=== PATIENT | female | born 1975 | race Native Hawaiian/Other Pacific Islander ===

== ENCOUNTER 2018-07-31 20:13 | Emergency (ER) | payer BC ==
--- NOTE | 2018-07-31 21:33 | ED PDOC ---
HPI: Psych/Substance Abuse Time Seen by Provider: 07/31/18 20:54 Chief Complaint (Nursing): Psychiatric Evaluation Chief Complaint (Provider): crisis eval History Per: Patient, EMS Additional Complaint(s): 42 y/o female brought in by EMS for crisis evaluation. Patient states she called 911 because there was a worker in her building banging on her door trying to get in. As per EMS, patient called 911 acting paranoid and could not provide EMS or police with clear or coherent thoughts; mobile crisis was contacted but unable to get to home. Patient calm at present, states she is feeling better; denies suicidal/homicidal ideations, acute physical complaints. Past Medical History Reviewed: Historical Data, Nursing Documentation, Vital Signs Vital Signs: Last Vital Signs Temp 98.4 F 07/31/18 20:15 Pulse 109 H 07/31/18 20:15 Resp 18 07/31/18 20:15 BP 156/104 H 07/31/18 20:15 Pulse Ox 100 07/31/18 20:15 - Medical History PMH: Bipolar Disorder, Schizophrenia - Surgical History Surgical History: - Family History Family History: States: No Known Family Hx - Allergies Allergies/Adverse Reactions: Allergies Allergy/AdvReac Type Severity Reaction Status Date / Time No Known Allergies Allergy Verified 07/31/18 21:29 Review of Systems ROS Statement: Except As Marked, All Systems Reviewed And Found Negative Psych: Positive for: Other (paranoia) Physical Exam - Reviewed Nursing Documentation Reviewed: Yes Vital Signs Reviewed: Yes - Physical Exam Appears: Positive for: Well, Non-toxic, No Acute Distress Head Exam: Positive for: ATRAUMATIC, NORMAL INSPECTION, NORMOCEPHALIC Skin: Positive for: Normal Color Eye Exam: Positive for: Normal appearance ENT: Positive for: Normal ENT Inspection Cardiovascular/Chest: Positive for: Regular Rate, Rhythm Respiratory: Positive for: Normal Breath Sounds Gastrointestinal/Abdominal: Positive for: Normal Exam Back: Positive for: Normal Inspection Extremity: Positive for: Normal ROM Neurologic/Psych: Positive for: Alert, Oriented (x3), Mood/Affect (guarded) - ECG O2 Sat by Pulse Oximetry: 100 - Progress ED Course And Treament: Patient evaluated by developmental services worker; does not meet criteria for admission at this time as per Dr. White Patient require no further intervention in the ED and is stable for discharge at this time Return precautions given Disposition - Clinical Impression Clinical Impression: Mood disorder - Patient ED Disposition Is Patient to be Admitted: No Counseled Patient/Family Regarding: Diagnosis, Need For Followup - Disposition Disposition: Routine/Home Disposition Time: 00:26 Condition: IMPROVED
[2018-08-01 00:32] VITALS: BP 136/79; PULSE 86; RESP 16; TEMP 98.1; O2SAT 99
== END 2018-08-01 00:43 | disposition home or self-care (01) ==
LOC: H.ER 20:13
DX: F39 Unspecified mood [affective] disorder (principal); F20.9 Schizophrenia, unspecified; F31.9 Bipolar disorder, unspecified

== ENCOUNTER 2018-12-07 23:57 | Emergency (ER) | payer BC ==
[2018-12-08 02:40] LABS: BASO # 0.1 K/uL (0.0-0.2); BASO % 0.6 % (0.0-2.0); EOS % 0.2 % (0.0-4.0); HEMOGLOBIN 13.6 g/dL (12.0-16.0); LYMPH # 2.6 K/uL (1.0-4.3); LYMPH % 18.5 % (20.0-40.0); MEAN CELL VOLUME 94.3 fl (81.0-99.0); MEAN CORPUSCULAR HEMOGLOBIN 32.4 pg (27.0-31.0); MEAN CORPUSCULAR HGB CONC 34.4 g/dL (33.0-37.0); MEAN PLATELET VOLUME 6.9 fl (7.2-11.7); MONO # 0.7 K/uL (0.0-0.8); NEUT # 10.8 K/uL (1.8-7.0); NEUT % 75.7 % (50.0-75.0); NRBC % 0.1 % (0.0-0.0); RBC 4.19 Mil/uL (3.80-5.20); RED CELL DISTRIBUTION WIDTH 12.6 % (11.5-14.5); WHITE BLOOD COUNT 14.3 K/uL (4.8-10.8)
[2018-12-08 02:57] LABS: ACETAMINOPHEN < 10.0 ug/ml (10.0-30.0); SALICYLATE < 1.0 mg/dl
[2018-12-08 02:58] LABS: BLOOD UREA NITROGEN 7 mg/dl (7-17); CALCIUM 9.7 mg/dL (8.4-10.2); GFR NON-AFRICAN AMERICAN > 60
--- NOTE | 2018-12-08 03:00 | ED PDOC ---
HPI: Psych/Substance Abuse Time Seen by Provider: 12/08/18 01:07 Chief Complaint (Nursing): Psychiatric Evaluation Chief Complaint (Provider): Psychiatric Evaluation History Per: Patient, Family (Cousin) History/Exam Limitations: no limitations Associated Symptoms: Anxiety. denies: Suicidal Thoughts Additional Complaint(s): 43 years old female with history of psychiatric disease brought in by police for wellness check after her friends called 911. Patient states she was gathering her belongings to move from [place] to [place] when this incident happened. Patient's cousin reports patient has been off her medications and decompensating and has been having more erratic behavior. Cousin is concerned because patient has been admitted multiple times for this in the past. Patient continuously asking for her civil rights and attempted to call multiple it network administrator while in the ED. She denies suicidal ideation, drug or alcohol usage. PMD: Goran Adan Past Medical History Reviewed: Historical Data, Nursing Documentation, Vital Signs Vital Signs: Last Vital Signs Temp 98.2 F 12/08/18 00:07 Pulse 118 H 12/08/18 00:07 Resp 18 12/08/18 00:07 BP 115/70 12/08/18 00:07 Pulse Ox 99 12/08/18 00:07 - Medical History PMH: Bipolar Disorder, Schizophrenia Denies: Diabetes, Hepatitis, HIV, HTN, Seizures, Sexually Transmitted Disease - Surgical History Surgical History: - Family History Family History: States: Unknown Family Hx - Allergies Allergies/Adverse Reactions: Allergies Allergy/AdvReac Type Severity Reaction Status Date / Time No Known Allergies Allergy Verified 07/31/18 21:29 Review of Systems ROS Statement: Except As Marked, All Systems Reviewed And Found Negative Psych: Negative for: Suicidal ideation Physical Exam - Reviewed Nursing Documentation Reviewed: Yes Vital Signs Reviewed: Yes - Physical Exam Appears: Positive for: No Acute Distress Head Exam: Positive for: ATRAUMATIC, NORMOCEPHALIC Skin: Positive for: Normal Color, Warm, Dry Eye Exam: Positive for: Normal appearance, EOMI, PERRL ENT: Positive for: Normal ENT Inspection Neck: Positive for: Normal, Painless ROM, Supple Cardiovascular/Chest: Positive for: Regular Rate, Rhythm. Negative for: Murmur Respiratory: Positive for: Normal Breath Sounds. Negative for: Respiratory Distress Gastrointestinal/Abdominal: Positive for: Normal Exam, Soft. Negative for: Tenderness Back: Positive for: Normal Inspection. Negative for: L CVA Tenderness, R CVA Tenderness Extremity: Positive for: Normal ROM. Negative for: Pedal Edema, Deformity Neurological/Psych: Positive for: Awake, Alert, Oriented (x3), Other (Patient is extremely anxious. Patient has paranoid fixed delusions.) - Laboratory Results Result Diagrams: 12/08/18 02:33 12/08/18 02:33 - ECG O2 Sat by Pulse Oximetry: 99 (RA) Pulse Ox Interpretation: Normal Medical Decision Making Medical Decision Making: Time: 0126 A/P: 43 yo female with paranoid schizophrenia --Patient is not cooperating with staff regarding workup --Patient is not exhibiting clear thinking or rational thinking --Patient was relieved of agitation with medication and required restraints for own safety --call worker, Dasia, evaluated patient and will await for psychiatric re commendations. Scribe Attestation: Documented by Ivonne Santamaria, acting as a scribe for Bon Lara MD. Provider Scribe Attestation: All medical record entries made by the Scribe were at my direction and personally dictated by me. I have reviewed the chart and agree that the record accurately reflects my personal performance of the history, physical exam, medical decision making, and the department course for this patient. I have also personally directed, reviewed, and agree with the discharge instructions and disposition. Disposition - Clinical Impression Clinical Impression: Mood disorder - Patient ED Disposition Is Patient to be Admitted: Transfer of Care - Disposition Disposition: Transfer of Care Disposition Time: 06:53 Condition: STABLE Forms: [facility] (Swedish) Patient Signed Over To: Pauly Cuenca Handoff Comments: pending medical clearance and [facility] eval
--- NOTE | 2018-12-08 07:06 | CARD ---
APPROVED REPORT Date of service: 12/08/2018 EKG Measurement Heart [id number] <Conclusion> Normal sinus rhythm ST elevation, probably due to early repolarization Borderline ECG
--- NOTE | 2018-12-08 08:16 | ED PDOC ---
- Laboratory Results Result Diagrams: 12/08/18 02:33 12/08/18 02:33 - ECG O2 Sat by Pulse Oximetry: 99 (RA) Medical Decision Making Medical Decision Making: Time: Initial Impression: Initial Plan: Signed out to Dr. Cuenca. pt present overnight as an EDP. pt is showing delusional signs and required sedation overnight. Pending medication clearence, crisis/social services technician evaluation, current on 1to 1 observation, and reevaluate. 1145 Pt medically optimized for evaluation by psychiatry. Labs, UA, EKG, and CXR unremarkable. [address] Patient signed out to Dr. Benavides pending [facility] placement. Patient is stable, comfortable and no medical intervention needed at this time. Scribe Attestation: Documented by Darlene Alvarado, acting as a scribe for Pauly Cuenca Provider Scribe Attestation: All medical record entries made by the Scribe were at my direction and personally dictated by me. I have reviewed the chart and agree that the record accurately reflects my personal performance of the history, physical exam, medical decision making, and the department course for this patient. I have also personally directed, reviewed, and agree with the discharge instructions and disposition. Disposition - Clinical Impression Clinical Impression: Paranoid schizophrenia - POA Present On Arrival: None - Disposition Referrals: [facility] [Outside] Disposition: Transfer of Care Disposition Time: 15:00 Condition: FAIR Instructions: Schizophrenia Forms: [facility] (Occitan) Patient Signed Over To: Xavier Benavides (pending [facility] placement)
--- NOTE | 2018-12-08 08:21 | RAD ---
Date of service: 12/08/2018 HISTORY: psych COMPARISON: None available. TECHNIQUE: 1 view obtained. FINDINGS: LUNGS: No active pulmonary disease. PLEURA: No significant pleural effusion identified, no pneumothorax apparent. CARDIOVASCULAR: No aortic atherosclerotic calcification present. Normal cardiac size. No pulmonary vascular congestion. OSSEOUS STRUCTURES: No significant abnormalities. VISUALIZED UPPER ABDOMEN: Normal. OTHER FINDINGS: None. IMPRESSION: No acute cardiopulmonary disease appreciated.
[2018-12-08 09:55] LABS: SQUAMOUS EPITHIAL 2 /hpf (0-5); URINE BACTERIA OCC (<OCC); URINE BILIRUBIN NEGATIVE (NEGATIVE); URINE BLOOD NEGATIVE (NEGATIVE); URINE CLARITY SLIGHTY-CLOUDY (Clear); URINE COLOR YELLOW (YELLOW); URINE GLUCOSE (UA) NEG (NEGATIVE); URINE LEUKOCYTE ESTERASE NEG Leu/uL (Negative); URINE PROTEIN NEGATIVE (NEGATIVE); URINE UROBILINOGEN 0.2-1.0 mg/dL (0.2-1.0)
[2018-12-08 10:12] LABS: BARBITURATES, UR NEGATIVE (NEGATIVE); BENZODIAZEPINES, UR NEGATIVE (NEGATIVE); OPIATES, UR NEGATIVE (NEGATIVE); PHENCYCLIDINE, UR NEGATIVE (NEGATIVE)
--- NOTE | 2018-12-08 12:54 | CP.PCM.CON ---
History of Present Illness - History of Present Illness History of Present Illness: Psychiatry consult note CC: Bizarre behavior HPI: Patient currently refusing to talk to typewriter mechanic, just states that she needs to contact her director of investigations. Below history was obtained from the initial ER evaluation: 43 y/o female who was brought into ED by EMS and [place] PD due to bizarre behavior. As per EMS, pt was sitting in a bar calling her friend and saying bizarre things. Pts friend then called 911 for a welfare check. As per the triage note, Pt seemed paranoid and was not forthcoming with information. While in ED, Pt kept calling attorneys and was telling them that "under supreme court article she is not to be medicated or admitted to any hospital and that she is being held against her will in the hospital. Pt stated her friend Juan Ramon who lives in [place] called 911 on her and stated the police wanted her to come to the hospital for a voluntary welfare check. Pt denied having a psych hx and denied any psych tx. Pt denied being on medications. Pt stated she is living in [place] and is not a resident of [place]. CW seen a cable box in pts bag and asked pt about this and she replied, Im moving. Pt stated she lives in a 3 bedroom home in [place] and reported living alone. Pt denied s/h ideations, as well as, a/v h allucinations. Pt denied ever attempting suicide. Pt denied current/past abuse. Pt denied having any criminal hx. Pt denied issues with sleep/appetite. Pt stated she has a restraining order on her mom and did have any contact with her. Pt stated she speaks to her dad but stated CW cannot contact him and stated she would not give CW his number. Pts speech was loud and affect was flat. Pt seemed bizarre and was fixated on calling her attorneys and publicity agent. Pt made 3 calls to her publicity agent and civil attorney and left voicemails during the assessment. Pt was not being cooperative and had to be restrained and medicated. Pt kept repeating under [place] article she is not to be medicated or admitted to any hospital. Pt stated she did not want or need psych admission. CW spoke to pts sister in law, Elizabeth [phone], who stated pt has an hx of paranoid schizophrenia and was dx 8 years ago by [facility]. She stated pt is not compliant medications or psych tx. She stated pts family lives in [place] and stated pt and her siblings are adopted. She stated pts bio-mom was dx with an unknown mental illness and currently lives in [facility]. She stated pt has been delusional and paranoid. She stated pt is getting a divorce and has a 7 y/o son. She stated her is supporting pt and stated pt lives in [place] and does not know her address. However, she reported that pts and child has a restraining order on pt and pt violated it recently by going to [employer] school. She stated pt could be possibly be danger to herself and others due to not complying mental health tx. 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 She reported pt being admitted in [place] and [place] in psych unit and most recent was a month ago in [place]. She feels pt needs psych admission to be stabilized. Impression: 43 yo female w h/o schizophrenia, should be screened for involuntary psychiatric admission. Past Patient History - Past Social History Smoking Status: Unknown If Ever Smoked - CARDIAC Hx Hypertension: No - PULMONARY Hx Tuberculosis: No - NEUROLOGICAL Hx Seizures: No - HEMATOLOGICAL/ONCOLOGICAL Hx Human Immunodeficiency Virus (HIV): No - GENITOURINARY/GYNECOLOGICAL Hx Sexually Transmitted Disorders: No - PSYCHIATRIC Hx Bipolar Disorder: Yes Hx Schizophrenia: Yes - SURGICAL HISTORY Hx Surgeries: No Meds Allergies/Adverse Reactions: Allergies Allergy/AdvReac Type Severity Reaction Status Date / Time No Known Allergies Allergy Verified 07/31/18 21:29 Results - Vital Signs Recent Vital Signs: Last Vital Signs Temp 98.0 F 12/08/18 05:29 Pulse 71 12/08/18 05:29 Resp 15 12/08/18 05:29 BP 100/61 12/08/18 05:29 Pulse Ox 99 12/08/18 11:55 - Labs Result Diagrams: 12/08/18 02:33 12/08/18 02:33 Labs: Laboratory Results - last 24 hr 12/08/18 12/08/18 12/08/18 02:33 02:33 02:33 WBC 14.3 H RBC 4.19 Hgb 13.6 Hct 39.5 MCV 94.3 MCH 32.4 H MCHC 34.4 RDW 12.6 Plt Count 396 MPV 6.9 L Neut % (Auto) 75.7 H Lymph % (Auto) 18.5 L [place] % (Auto) 5.0 Eos % (Auto) 0.2 Baso % (Auto) 0.6 Neut # (Auto) 10.8 H Lymph # (Auto) 2.6 [place] # (Auto) 0.7 Eos # (Auto) 0.0 Baso # (Auto) 0.1 Sodium 137 Potassium 3.3 L Chloride 102 Carbon Dioxide 23 Anion Gap 15 BUN 7 Creatinine 0.5 L Est GFR ( Amer) > 60 Est GFR (Non-Af Amer) > 60 Random Glucose 119 H Calcium 9.7 Urine Color Urine Clarity Urine pH Ur Specific [place] Urine Protein Urine Glucose (UA) Urine Ketones Urine Blood Urine Nitrate Urine Bilirubin Urine Urobilinogen Ur Leukocyte Esterase Urine RBC (Auto) Urine Microscopic WBC Ur Squamous Epith Cells Urine Bacteria Salicylates < 1.0 Urine Opiates Screen Urine Methadone Screen Acetaminophen < 10.0 L Ur Barbiturates Screen Ur Phencyclidine Scrn Ur Amphetamines Screen U Benzodiazepines Scrn U Oth Cocaine Metabols U Cannabinoids Screen Alcohol, Quantitative < 10 12/08/18 12/08/18 09:36 09:36 WBC RBC Hgb Hct MCV MCH MCHC RDW Plt Count MPV Neut % (Auto) Lymph % (Auto) [place] % (Auto) Eos % (Auto) Baso % (Auto) Neut # (Auto) Lymph # (Auto) [place] # (Auto) Eos # (Auto) Baso # (Auto) Sodium Potassium Chloride Carbon Dioxide Anion Gap BUN Creatinine Est GFR ( Amer) Est GFR (Non-Af Amer) Random Glucose Calcium Urine Color Yellow Urine Clarity Slighty-cloudy Urine pH 6.0 Ur Specific [place] 1.009 Urine Protein Negative Urine Glucose (UA) Neg Urine Ketones 20 Urine Blood Negative Urine Nitrate Negative Urine Bilirubin Negative Urine Urobilinogen 0.2-1.0 Ur Leukocyte Esterase Neg Urine RBC (Auto) 3 Urine Microscopic WBC 2 Ur Squamous Epith Cells 2 Urine Bacteria Occ H Salicylates Urine Opiates Screen Negative Urine Methadone Screen Negative Acetaminophen Ur Barbiturates Screen Negative Ur Phencyclidine Scrn Negative Ur Amphetamines Screen Negative U Benzodiazepines Scrn Negative U Oth Cocaine Metabols Negative U Cannabinoids Screen Negative Alcohol, Quantitative
[2018-12-08 12:56] VITALS: RESP 18
[2018-12-08 15:26] VITALS: O2SAT 99
[2018-12-08 18:34] VITALS: BP 118/77; PULSE 99; TEMP 98.6
--- NOTE | 2018-12-08 19:35 | ED PDOC ---
- Laboratory Results Result Diagrams: 12/08/18 02:33 12/08/18 02:33 Lab Results: Urine Color Yellow (YELLOW) 12/08/18 09:36 Urine Clarity Slighty-cloudy (Clear) 12/08/18 09:36 Urine pH 6.0 (5.0-8.0) 12/08/18 09:36 Ur Specific [place] 1.009 (1.003-1.030) 12/08/18 09:36 Urine Protein Negative mg/dL (NEGATIVE) 12/08/18 09:36 Urine Glucose (UA) Neg mg/dL (NEGATIVE) 12/08/18 09:36 Urine Ketones 20 mg/dL (NEGATIVE) 12/08/18 09:36 Urine Blood Negative (NEGATIVE) 12/08/18 09:36 Urine Nitrate Negative (NEGATIVE) 12/08/18 09:36 Urine Bilirubin Negative (NEGATIVE) 12/08/18 09:36 Urine Urobilinogen 0.2-1.0 mg/dL (0.2-1.0) 12/08/18 09:36 Ur Leukocyte Esterase Neg [place]/uL (Negative) 12/08/18 09:36 Urine RBC (Auto) 3 /hpf (0-3) 12/08/18 09:36 Urine Microscopic WBC 2 /hpf (0-5) 12/08/18 09:36 Ur Squamous Epith Cells 2 /hpf (0-5) 12/08/18 09:36 Urine Bacteria Occ (<OCC) H 12/08/18 09:36 - ECG O2 Sat by Pulse Oximetry: 99 - Progress Re-evaluation Time: 19:31 Condition: Re-examined (Evaluated by [facility] and found not to be appropriate for involuntary admission. Denies SI/HI) Disposition - Clinical Impression Clinical Impression: Paranoid schizophrenia - POA Present On Arrival: None - Disposition [facility]errals[facility] [Outside] Disposition: Routine/Home Disposition Time: 19:32 Condition: FAIR Instructions: Schizophrenia Forms: [facility] (Polish)
== END 2018-12-08 19:56 | disposition home or self-care (01) ==
LOC: H.ER 23:57
DX: F20.0 Paranoid schizophrenia (principal); F31.9 Bipolar disorder, unspecified
CPT/HCPCS: 71045; 80048; 81003; 81025; 85025; 93005; 96372; 99285; G0480; J1630; J2060